=== PATIENT | female | born 2000 | race Caucasian/White ===

== ENCOUNTER 2024-10-12 10:56 | Outpatient (CLI) | payer OTHER, SELFPAY | END 2024-10-12 10:57 | disposition home or self-care (01) | PROVIDERS: PCP Nurse Practitioner Family; Visit Provider Nurse Practitioner Family | DX: Z00.01 Encounter for general adult medical examination with abnormal findings (principal); E78.2 Mixed hyperlipidemia; Z79.3 Long term (current) use of hormonal contraceptives | CPT/HCPCS: 80061; 82306; 82947; 84443 ==